=== PATIENT | female | born 1965 | race Caucasian/White ===

== ENCOUNTER → 2018-04-19 | Outpatient (CLI) | payer OTHER ==
[~2018-04-19] MED LIST: DOCU-416 PO; LISI-347 PO; LOR5/325 PO; OMEG-26 PO; OXYC-865 PO; VAL500 PO; VITA-175 PO; vit d
--- NOTE | 2018-04-19 11:28 | RADIOLOGY IMAGING REPORT ---
FAC[place] [facility] [place]IENT NAME: SAJI MONZON : [id number] MR: [id number] V: [id number] EXAM DATE: [id number] ORDERING PHYSICIAN: ANIYA GRAMAJO TECHNOLOGIST: Carina Irizarry PROCEDURE:BILATERAL DIGITAL SCREENING MAMMOGRAM WITH CAD ASSISTED INTERPRETATION & 3D TOMOSYNTHESIS COMPARISON:Prior mammograms 02/14/17, 02/15/16, 09/30/14, 11/19/13, 01/10/12. INDICATIONS:SCREENING FINDINGS: Moderately heterogeneous fibroglandular tissue is seen throughout the breasts. The parenchymal pattern has remained stable allowing for difference in mammographic technique & patient positioning. There's an area of architectural distortion from postsurgical scaring in the medial upper portion of the Right breast that has remained stable. There is no evidence of malignant appearing mass, malignant appearing calcifications or other secondary sign of malignancy in either breast. DIAGNOSTIC CATEGORY 2--BENIGN FINDING. RECOMMENDATIONS: ROUTINE MAMMOGRAM AND CLINICAL EVALUATION. IMPRESSION: BIRADS 2: Benign finding. No significant abnormality is seen. Dictated by: Natalia Schilling M.D. on 04/19/2018 at 10:02 Transcribed by: LEONARD on 04/19/2018 at 10:14 Approved by: Natalia Schilling M.D. on 04/19/2018 at 11:27 [facility]
== END ==
LOC: MAMO 01:56
PROVIDERS: ATTEND Family Medicine
DX: Z12.31 Encounter for screening mammogram for malignant neoplasm of breast (principal)
CPT/HCPCS: 77063; 77067

== ENCOUNTER → 2019-01-23 | Outpatient (CLI) | payer OTHER ==
--- NOTE | 2019-01-23 16:58 | RADIOLOGY IMAGING REPORT ---
FACILITY: [facility] PATIENT NAME: Demetrice East : 1965 MR: [id number] V: [id number] EXAM DATE: ORDERING PHYSICIAN: ANIYA GRAMAJO TECHNOLOGIST: Location: [facility] - [place] Patient: Demetrice East : 1965 Visit/Account:[id number] Date of Sevice: 01/23/2019 US VENOUS LOWER EXT RT HISTORY: Right pain and swelling COMPARISON STUDIES: none FINDINGS: Grayscale compression, duplex and color Doppler interrogation of the RIGHT lower extremity deep vein s from common femoral vein to proximal calf was performed. The greater saphenous vein was evaluated u sing similar technique. Common femoral vein negative Femoral vein negative Deep femoral vein - negative Popliteal vein negative Visualized deep calf veins negative Greater saphenous vein in the proximal thigh negative Popliteal fossa: negative IMPRESSION: 1.. Negative right leg for DVT. Report Dictated By: Guanakito Burton MD at 01/23/2019 4:53 PM Report E-Signed By: Guanakito Burton MD at 01/23/2019 4:54 PM WSN:[email or web address]
== END ==
LOC: US 14:13
PROVIDERS: ATTEND Family Medicine
DX: M79.661 Pain in right lower leg (principal); R22.41 Localized swelling, mass and lump, right lower limb